=== PATIENT | male | born 1970 | race Hispanic/Latino ===

== ENCOUNTER 2019-07-17 10:40 | Emergency (ER) | payer SELFPAY ==
[2019-07-17] MEDS ORDERED: METOCLOPRAMIDE HCL INJ 10 MG/2 ML VIAL IV ONE (10:50)
--- NOTE | 2019-07-17 10:55 | ED.PDOC ---
History of Present Illness - General Time Seen by Provider: 07/17/19 10:43 Source: patient, RN notes reviewed, Vital Signs reviewed Exam Limitations: no limitations - History of Present Illness Initial Comments: Pt is a 48 yo male with no PMH, does not take any medications regularly, was sent to ED by PCP for headache and elevated BP. Pt states he has had achy posterior AMATO for the past week and numbness to right cheek area for 1 week. Reports pain is 4-5/10. Denies recent head injury, nausea, vomiting, fever, neck stiffness, weakness, balance issues or changes in speech. SBP was in 150's in clinic and sent to ED for evaluation. Allergies/Adverse Reactions: Allergies NO KNOWN ALLERGY Allergy (Verified 07/17/19 10:56) Home Medications: Ambulatory Orders Cyclobenzaprine HCl [Flexeril] 10 mg PO Q8H PRN #15 tab 07/17/19 Review of Systems - Review of Systems Constitutional: Denies: chills, fever, weakness EENTM: Denies: blurred vision, ear pain, nose congestion, throat swelling, mouth swelling Respiratory: Denies: cough, short of breath Cardiology: Denies: chest pain, edema, palpitations, syncope Gastrointestinal/Abdominal: Denies: abdominal pain, nausea, vomiting Genitourinary: Denies: dysuria, hematuria Musculoskeletal: Denies: back pain, neck pain Skin: States: no symptoms reported Neurological: States: headache, numbness - to right cheek. Denies: seizure, weakness Endocrine: States: no symptoms reported All other Systems: Reviewed and Negative Family Medical History - Family History Father Hx Family;Other: Father passed from a stroke. Mother passed from cirrhosis. Sister passed from cirrhosis and "some form of cancer" Physical Exam - Physical Exam General Appearance: Alert, Comfortable, No apparent distress, Well Developed, Well Groomed Eye Exam: bilateral normal - PERRL, EOMI Neck: non-tender, full range of motion, supple Respiratory: chest non-tender, lungs clear, normal breath sounds, no respiratory distress, no accessory muscle use Cardiovascular/Chest: normal peripheral pulses, regular rate, rhythm, no edema, no murmur Gastrointestinal/Abdominal: non tender, soft, no pulsatile mass Back Exam: no vertebral tenderness Extremity: normal range of motion, non-tender, no calf tenderness 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 NIHSS is 0 Skin Exam: normal color, warm/dry Progress - Progress Progress: 07/17/19 12:15 Pt presents to ED for 1 week h/o headache that is 5/10 at worst, right facial numbness and elevated BP. States he has not checked his BP regularly, but was told it was elevated in clinic today and was sent to ED for evaluation. BP improved here with Benadryl and Reglan and after medication, pain has resolved. initial neuro exam showed no neuro deficits nd NIHSS was 0. CT imaging performed to r/o ICH, mass or infarct and arre negative. his symptoms have been ongoing for 1 week. Repeat neuro exam shows no deficits and pain has resolved. Will treat with Flexeril and I have asked him to f/u with PCP in 1-2 days for recheck and possible BP med management. SRP given. - Results/Orders Results/Orders: CT BRAIN TECHNIQUE: Noncontrast transaxial CT images of the head are obtained from base to vertex. This exam was performed according to our departmental dose- optimization program, which includes automated exposure control, adjustment of the mA and/or kV according to patient size and/or use of iterative reconstruction technique. FINDINGS: The midline structures are not displaced. The sulci are age appropriate. The lateral, third, and fourth ventricles are normal in size, shape, and anatomic positioning. There is no evidence of mass, mass effect, hydrocephalus, or acute intracranial hemorrhage. No abnormal extra axial fluid collections are seen. Normal maloney-white differentiation is seen. The visualized bone windows show no depressed skull fracture or significant abnormality. The visualized paranasal sinuses and mastoid air cells are clear. IMPRESSION: 1. No acute abnormality is seen on noncontrast CT of the head. CTA BRAIN TECHNIQUE: Postcontrast CTA images of the head are obtained with 3-D MIP recon structed images of the arterial vasculature. This exam was performed according to our departmental dose-optimization program, which includes automated exposure control, adjustment of the mA and/or kV according to patient size and/or use of iterative reconstruction technique . FINDINGS: The midline structures are not displaced. Sulci are age appropriate. No evidence of mass, mass effect, hydrocephalus, or acute intracranial hemorrhage. No abnormal extra-axial fluid collections. No abnormal enhancement. Pacchionian granulation in the right transverse sinus region is seen measuring 8 to 9 mm. Normal venous vasculature in the brain. Normal positioning of the intracranial internal carotid arteries. No significant calcified or noncalcified plaque. Hypoplastic right A1 segment is seen. Normal branching of the major intracranial arterial vasculature are seen. No aneurysm, vascular malformation, or flow limiting stricture or stenosis is identified. IMPRESSION: Normal CTA head. No abnormal enhancement on postcontrast CT imaging. 07/17/19 10:48 IV:Start .ONCE 07/17/19 11:00 diphenhydrAMINE HCL [Benadryl] 50 mg IV ONCE EKG .ONCE Laboratory Results - last 24 hr 07/17/19 07/17/19 10:55 10:55 WBC 8.2 RBC 5.10 Hgb 15.5 Hct 45.7 MCV 89.6 MCH 30.5 MCHC 34.0 RDW 13.0 Plt Count 236 MPV 8.2 Absolute Neuts (auto) 4.90 Absolute Lymphs (auto) 2.30 Absolute Monos (auto) 0.80 Absolute Eos (auto) 0.10 Absolute Basos (auto) 0.00 Neutrophils % 59.8 Lymphocytes % 28.0 Monocytes % 9.8 H Eosinophils % 1.8 Basophils % 0.6 Sodium 140 Potassium 3.9 Chloride 108 Carbon Dioxide 24 Anion Gap 11.9 L BUN 12 Creatinine 0.94 BUN/Creatinine Ratio 12.8 Random Glucose 82 Serum Osmolality 278.2 Calcium 9.5 Total Bilirubin 0.5 AST 64 H ALT 79 H Alkaline Phosphatase 68 Serum Total Protein 7.8 Albumin 4.8 Globulin 3.0 Albumin/Globulin Ratio 1.6 - EKG/XRAY/CT EKG: Sinus Comments: NSR, rate 69, nml intervals, no ST abnormality Departure - Departure Clinical Impression: Elevated blood pressure reading, Paresthesia Headache Qualifiers: Headache type: unspecified Headache chronicity pattern: acute headache Intractability: not intractable Qualified Code(s): R51 - Headache Time of Disposition: 12:14 Disposition: Discharge to Home or Self Care Condition: Good Instructions: DI for Headache Diet: resume usual diet Activity: increase activity as tolerated Referrals: KARENA VOGEL [Primary Care Provider] - 1-2 Days Prescriptions: Cyclobenzaprine HCl [Flexeril] 10 mg PO Q8H PRN #15 tab PRN Reason: Mild To Moderate Pain Home Medications: Ambulatory Orders Cyclobenzaprine HCl [Flexeril] 10 mg PO Q8H PRN #15 tab 07/17/19 Additional Instructions: You will need to follow up with your PCP in 1-2 days for blood pressure recheck and may need to start on blood pressure medication
[2019-07-17] MEDS ORDERED: diphenhydrAMINE HCL 50 MG/ML VIAL IV SCH (11:00)
--- NOTE | 2019-07-17 11:55 | CT ---
EXAM DESCRIPTION: Head CLINICAL HISTORY: headache COMPARISON: None TECHNIQUE: Noncontrast transaxial CT images of the head are obtained from base to vertex. This exam was performed according to our departmental dose-optimization program, which includes automated exposure control, adjustment of the mA and/or kV according to patient size and/or use of iterative reconstruction technique. FINDINGS: The midline structures are not displaced. The sulci are age appropriate. The lateral, third, and fourth ventricles are normal in size, shape, and anatomic positioning. There is no evidence of mass, mass effect, hydrocephalus, or acute intracranial hemorrhage. No abnormal extra axial fluid collections are seen. Normal maloney-white differentiation is seen. The visualized bone windows show no depressed skull fracture or significant abnormality. The visualized paranasal sinuses and mastoid air cells are clear. IMPRESSION: 1. No acute abnormality is seen on noncontrast CT of the head. Electronically signed by: Hardeep Richard MD 07/17/2019 11:53 AM CDT
--- NOTE | 2019-07-17 12:00 | CT ---
EXAM DESCRIPTION: CTA Head CLINICAL HISTORY: AMATO, right facial numbness COMPARISON: Noncontrast CT of the head same day TECHNIQUE: Postcontrast CTA images of the head are obtained with 3-D MIP reconstructed images of the arterial vasculature. This exam was performed according to our departmental dose-optimization program, which includes automated exposure control, adjustment of the mA and/or kV according to patient size and/or use of iterative reconstruction technique . FINDINGS: The midline structures are not displaced. Sulci are age appropriate. No evidence of mass, mass effect, hydrocephalus, or acute intracranial hemorrhage. No abnormal extra-axial fluid collections. No abnormal enhancement. Pacchionian granulation in the right transverse sinus region is seen measuring 8 to 9 mm. Normal venous vasculature in the brain. Normal positioning of the intracranial internal carotid arteries. No significant calcified or noncalcified plaque. Hypoplastic right A1 segment is seen. Normal branching of the major intracranial arterial vasculature are seen. No aneurysm, vascular malformation, or flow limiting stricture or stenosis is identified. IMPRESSION: Normal CTA head. No abnormal enhancement on postcontrast CT imaging. CT is insensitive for evaluation of acute intracranial ischemia. Consider further evaluation with MRI imaging if clinically indicated and the patient has no contraindications. Electronically signed by: Hardeep Richard MD 07/17/2019 11:59 AM CDT
[2019-07-17 12:03] VITALS: BP 130/81; O2SAT 99
[2019-07-17 12:23] VITALS: TEMP 97.8
== END 2019-07-17 12:23 | disposition home or self-care (01) ==
LOC: ER 10:40
DX: R51 Headache (principal); R03.0 Elevated blood-pressure reading, without diagnosis of hypertension; R20.2 Paresthesia of skin
CPT/HCPCS: 36415; 70450; 70496; 80053; 85025; 93005; J1200; J2765